=== PATIENT | male | born 1975 | race African-American/Black ===

== ENCOUNTER 2017-10-20 09:49 | Emergency (ER) | payer SELFPAY ==
[~2017-10-20] VITALS: Ht 188 cm; Wt 93.2 kg
[~2017-10-20 09:49] MED LIST: ASPIRIN 32325 MG/TAB PO; LORTAB 5/500 501 TAB PO; NAPROSYN PO; NO HOME MEDICATIONS
[2017-10-20 10:04] VITALS: TEMP 97.5
[2017-10-20 11:05] LABS: COLLECTION METHOD CLEAN CATCH
[2017-10-20 11:07] LABS: BASO % 0.6 % (0.0-2.0); EOS # 0.1 (0.0-0.7); EOS % 1.9 % (0-4.0); GRAN # 3.7 (1.4-6.5); GRAN % 53.3 % (42.2-75.2); HEMATOCRIT 42.8 % (42.0-52.0); LYMPH # 2.3 (1.2-3.4); LYMPH % 33.4 % (20.0-51.0); MEAN CELL VOLUME 76 fl (80.0-100.0); MEAN CORPUSCULAR HEMOGLOBIN 27 pg (27.0-31.0); MEAN CORPUSCULAR HGB CONC 35 g/dl (33.0-37.0); MEAN PLATELET VOLUME 11.7 fl (7.4-10.4); MONO # 0.7 (0.1-0.6); MONO % 9.7 % (1.7-9.3); PLATELET COUNT 197 K/mm3 (130-400); RED BLOOD COUNT 5.66 M/mm3 (4.20-5.60); REDCELL DISTRIBUTION WIDTH-CV 14.6 % (11.5-14.5)
[2017-10-20 11:16] LABS: MUCOUS Present /lpf; PH 6 (5-8); SQUAMOUS EPITHELIAL None Seen /hpf; URINE APPEARANCE Clear; URINE BACTERIA Rare /hpf; URINE BILIRUBIN Negative (NEGATIVE); URINE BLOOD Negative (NEGATIVE); URINE COLOR Yellow; URINE GLUCOSE Negative (NEGATIVE); URINE KETONE Negative (NEGATIVE); URINE LEUKOCYTE ESTERASE Negative (NEGATIVE); URINE NITRATE Negative (NEGATIVE); URINE PROTEIN(semi-quant) 1+ (NEGATIVE); URINE RBC 0-2 /hpf; URINE UROBILINOGEN Negative (NEGATIVE)
[2017-10-20 11:19] LABS: ALANINE AMINOTRANSFERASE 49 U/L (21-72); ALBUMIN 3.8 gm/dL (3.5-5.0); ALKALINE PHOSPHATASE 81 U/L (50-136); ANION GAP 9 mmol/L (7-16); AST,SGOT 37 U/L (15-37); BILIRUBIN,TOTAL 0.8 mg/dL (0.0-1.0); BLOOD UREA NITROGEN 18 mg/dL (9-20); CARBON DIOXIDE 30 mmol/L (22-30); CHLORIDE 100 mmol/L (98-107); CREATININE, serum 0.95 mg/dL (0.66-1.25); GLUCOSE 128 mg/dL (74-106); LIPASE 171 U/L (23-300); POTASSIUM 4.4 mmol/L (3.4-5.0); SODIUM 139 mmol/L (137-145); TOTAL PROTEIN 7.2 gm/dL (6.4-8.2)
[2017-10-20 11:33] LABS: TROPONIN-I < 0.012 ng/mL (0.000-0.034)
[2017-10-20] MEDS ORDERED: FLEXERIL 1010 MG/TAB PO (12:46)
[2017-10-20 13:06] VITALS: BP 129/86; PULSE 76
== END 2017-10-20 13:05 | disposition home or self-care (01) ==
LOC: COL.ER 09:49
PROVIDERS: Emergency Medicine
DX: R07.9 Chest pain, unspecified (principal); M54.5 Low back pain; F17.210 Nicotine dependence, cigarettes, uncomplicated
CPT/HCPCS: J1170; J7030

== ENCOUNTER 2018-01-04 19:32 | Emergency (ER) | payer SELFPAY ==
[~2018-01-04] VITALS: Ht 185.4 cm; Wt 97.7 kg
[~2018-01-04 19:32] MED LIST changes: +FLEXERIL 1010 MG/TAB PO
[2018-01-04 19:34] VITALS: BP 135/77; PULSE 79; TEMP 98.3
[2018-01-04] MEDS ORDERED: NORCO 325 MG-51 TAB PO (20:42)
[2018-01-04] MEDS ORDERED: PEN-VEE K500 MG PO (20:42)
== END 2018-01-04 20:55 | disposition home or self-care (01) ==
LOC: COL.ER 19:32
DX: K05.30 Chronic periodontitis, unspecified (principal); K03.81 Cracked tooth; F17.210 Nicotine dependence, cigarettes, uncomplicated

== ENCOUNTER 2018-09-19 17:38 | Emergency (ER) | payer SELFPAY ==
[~2018-09-19] VITALS: Ht 185.4 cm; Wt 93.2 kg
[~2018-09-19 17:38] MED LIST changes: +NORCO 325 MG-51 TAB PO; +PEN-VEE K500 MG PO
[2018-09-19 17:39] VITALS: TEMP 97
[2018-09-19 18:23] LABS: BASO # 0.1 (0.0-0.2); BASO % 0.9 % (0.0-2.0); EOS # 0.1 (0.0-0.7); EOS % 1.7 % (0-4.0); GRAN # 2.9 (1.4-6.5); GRAN % 45.1 % (42.2-75.2); HEMATOCRIT 43.5 % (42.0-52.0); HEMOGLOBIN 15.1 g/dl (13.5-18.0); LYMPH # 2.4 (1.2-3.4); LYMPH % 37.1 % (20.0-51.0); MEAN CELL VOLUME 75 fl (80.0-100.0); MEAN CORPUSCULAR HEMOGLOBIN 26 pg (27.0-31.0); MEAN CORPUSCULAR HGB CONC 35 g/dl (33.0-37.0); MONO # 0.9 (0.1-0.6); MONO % 13.9 % (1.7-9.3); PLATELET COUNT 243 K/mm3 (130-400); RED BLOOD COUNT 5.82 M/mm3 (4.20-5.60); REDCELL DISTRIBUTION WIDTH-CV 13.3 % (11.5-14.5)
[2018-09-19 18:24] LABS: COLLECTION METHOD CLEAN CATCH
[2018-09-19 18:30] LABS: ALBUMIN 3.9 gm/dL (3.5-5.0); BILIRUBIN,TOTAL 0.3 mg/dL (0.0-1.0); CREATININE, serum 1.1 mg/dL (0.66-1.25); POTASSIUM 4.3 mmol/L (3.4-5.0); TOTAL PROTEIN 7.1 gm/dL (6.4-8.2)
[2018-09-19 18:39] LABS: PH 5 (5-8); SQUAMOUS EPITHELIAL None Seen /hpf; URINE APPEARANCE Clear; URINE BACTERIA None Seen /hpf; URINE BILIRUBIN Negative (NEGATIVE); URINE BLOOD Negative (NEGATIVE); URINE COLOR Yellow; URINE GLUCOSE Negative (NEGATIVE); URINE KETONE Negative (NEGATIVE); URINE LEUKOCYTE ESTERASE Negative (NEGATIVE); URINE NITRATE Negative (NEGATIVE); URINE PROTEIN(semi-quant) Negative (NEGATIVE); URINE RBC 0-2 /hpf; URINE UROBILINOGEN Negative (NEGATIVE); URINE WBC 0-2 /hpf
[2018-09-19] MEDS ORDERED: NORCO 325 MG-51 TAB PO (19:39)
[2018-09-19 20:00] VITALS: BP 143/84; PULSE 77
== END 2018-09-19 20:04 | disposition home or self-care (01) ==
LOC: COL.ER 17:38
PROVIDERS: Emergency Medicine
DX: S32.019A Unspecified fracture of first lumbar vertebra, initial encounter for closed fracture (principal); S32.039A Unspecified fracture of third lumbar vertebra, initial encounter for closed fracture; S32.049A Unspecified fracture of fourth lumbar vertebra, initial encounter for closed fracture; F17.210 Nicotine dependence, cigarettes, uncomplicated; V43.62XA Car passenger injured in collision with other type car in traffic accident, initial encounter
CPT/HCPCS: Q9967

== ENCOUNTER 2020-07-29 15:42 | Emergency (ER) | payer SELFPAY ==
[~2020-07-29] VITALS: Ht 185.4 cm; Wt 81.8 kg
[2020-07-29 16:06] VITALS: BP 119/83; TEMP 98.7
[2020-07-29 18:00] VITALS: PULSE 89
== END 2020-07-29 18:00 | disposition home or self-care (01) ==
LOC: COL.ER 15:42
DX: U07.1 COVID-19 (principal); F17.200 Nicotine dependence, unspecified, uncomplicated

== ENCOUNTER 2020-08-19 12:13 | Emergency (ER) | payer SELFPAY ==
[~2020-08-19] VITALS: Ht 185.4 cm; Wt 81.8 kg
[2020-08-19 12:14] VITALS: TEMP 98
[2020-08-19 13:01] LABS: HEMATOCRIT 43.1 % (42.0-52.0); HEMOGLOBIN 14.8 g/dl (13.5-18.0); MEAN CELL VOLUME 74 fl (80.0-100.0); MEAN CORPUSCULAR HEMOGLOBIN 25 pg (27.0-31.0); MEAN CORPUSCULAR HGB CONC 34 g/dl (33.0-37.0); MEAN PLATELET VOLUME 11.2 fl (7.4-10.4); PLATELET COUNT 280 K/mm3 (130-400); RED BLOOD COUNT 5.83 M/mm3 (4.20-5.60); REDCELL DISTRIBUTION WIDTH-CV 13.3 % (11.5-14.5)
[2020-08-19 13:11] LABS: PROTHROMBIN TIME 10.6 SECONDS (9.7-12.8)
[2020-08-19 13:12] LABS: ALANINE AMINOTRANSFERASE 21 U/L (4-49); ALBUMIN 4.2 gm/dL (3.5-5.0); ALKALINE PHOSPHATASE 105 U/L (50-136); ANION GAP 11 mmol/L (7-16); AST,SGOT 31 U/L (15-37); BILIRUBIN,TOTAL 0.6 mg/dL (0.0-1.0); BLOOD UREA NITROGEN 15 mg/dL (9-20); CALCIUM 9.6 mg/dL (8.4-10.2); CARBON DIOXIDE 25 mmol/L (22-30); CHLORIDE 104 mmol/L (98-107); CREATININE, serum 1.09 (0.66-1.25); GLUCOSE 96 mg/dL (74-106); LIPASE 254 U/L (23-300); POTASSIUM 4.2 mmol/L (3.4-5.0); SODIUM 140 mmol/L (137-145); TOTAL PROTEIN 7.2 gm/dL (6.4-8.2)
[2020-08-19 13:13] LABS: PARTIAL THROMBOPLASTIN TIME 29.1 SECONDS (26.0-37.0)
[2020-08-19 13:26] LABS: TROPONIN-I < 0.012 ng/mL (0.000-0.035)
[2020-08-19 13:27] LABS: BASOPHIL 1 % (0-2); EOSINOPHIL 2 % (0-4); LYMPHOCYTE 33 % (20.0-51.0); NEUTROPHILS 49 % (42.0-75.2); PLATELET ESTIMATE NORMAL (NORMAL)
[2020-08-19 13:28] LABS: MICROCYTOSIS 1+
[2020-08-19 15:01] LABS: TRICYCLIC ANTIDEPRESS URINE NEGATIVE
[2020-08-19 18:35] VITALS: BP 110/84; PULSE 90
== END 2020-08-19 18:35 | disposition short-term general hospital (02) ==
LOC: COL.ER 12:13
PROVIDERS: Emergency Medicine; Hospitalist
DX: U07.1 COVID-19 (principal); S00.212A Abrasion of left eyelid and periocular area, initial encounter; I48.91 Unspecified atrial fibrillation; F17.210 Nicotine dependence, cigarettes, uncomplicated; Y04.8XXA Assault by other bodily force, initial encounter
CPT/HCPCS: J1650; J7030

== ENCOUNTER 2021-05-30 06:21 | Emergency (ER) | payer SELFPAY ==
[~2021-05-30] VITALS: Ht 185.4 cm; Wt 90.9 kg
[2021-05-30 06:29] VITALS: TEMP 96.3
[2021-05-30] MEDS ORDERED: LIDOCAINE HCL100 M1 MM (06:46)
[2021-05-30 07:00] VITALS: PULSE 85
== END 2021-05-30 07:00 | disposition home or self-care (01) ==
LOC: COL.ER 06:21
DX: K12.30 Oral mucositis (ulcerative), unspecified (principal); F17.210 Nicotine dependence, cigarettes, uncomplicated
CPT/HCPCS: J1885

== ENCOUNTER 2021-06-05 10:27 | Inpatient (IN) | payer SELFPAY ==
[~2021-06-05] VITALS: Ht 185.4 cm; Wt 89.9 kg
[~2021-06-05 10:27] MED LIST changes: +LIDOCAINE HCL100 M1 MM
[2021-06-05 11:35] LABS: HEMATOCRIT 40.8 % (42.0-52.0); MEAN CELL VOLUME 77 fl (80.0-100.0); MEAN CORPUSCULAR HEMOGLOBIN 26 pg (27.0-31.0); MEAN CORPUSCULAR HGB CONC 34 g/dl (33.0-37.0); MEAN PLATELET VOLUME 11.1 fl (7.4-10.4); PLATELET COUNT 242 K/mm3 (130-400); RED BLOOD COUNT 5.32 M/mm3 (4.20-5.60); REDCELL DISTRIBUTION WIDTH-CV 13.2 % (11.5-14.5)
[2021-06-05 11:45] LABS: ALBUMIN 3.8 gm/dL (3.5-5.0); BILIRUBIN,TOTAL 2.2 mg/dL (0.2-1.2); CALCIUM 9.3 mg/dL (8.4-10.2); CREATININE, serum 1.55 mg/dL (0.72-1.25); POTASSIUM 4.2 mmol/L (3.5-4.5)
[2021-06-05 12:21] LABS: BAND 1 % (0-10); LYMPHOCYTE 9 % (20.0-51.0); MICROCYTOSIS 1+; NEUTROPHILS 86 % (42.0-75.2); PLATELET ESTIMATE NORMAL (NORMAL)
[2021-06-05 12:22] LABS: STOMATOCYTE 1+
[2021-06-05 13:46] LABS: COLLECTION METHOD CLEAN CATCH
[2021-06-05 13:52] LABS: GLUCOSE,CSF 98 mg/dL (40-70); TOTAL PROTEIN,CSF 51 mg/dL (15-45)
[2021-06-05 14:08] LABS: MUCOUS Present (NOT PRESENT); PH 5 (5-8); SQUAMOUS EPITHELIAL 0-2 /hpf (0-10); URINE APPEARANCE Clear (CLEAR/HAZY); URINE BACTERIA None Seen (NONE SEEN); URINE BILIRUBIN Negative (NEGATIVE); URINE BLOOD Negative (NEGATIVE); URINE COLOR Amber (YELLOW); URINE GLUCOSE 2+ (NEGATIVE); URINE KETONE Negative (NEGATIVE); URINE LEUKOCYTE ESTERASE Negative (NEGATIVE); URINE NITRATE Negative (NEGATIVE); URINE PROTEIN(semi-quant) Negative (NEGATIVE); URINE UROBILINOGEN >=4.0 mg/dL (NEGATIVE)
[2021-06-05 14:46] LABS: CSF APPEARANCE CLEAR; CSF COLOR COLORLESS; CSF MONONUCLEAR 33 % (70-100); CSF POLYMORPHONUCLEAR 67 % (0-6); CSF RBC 1 /mm3 (0-0)
[2021-06-05 15:07] LABS: CSF APPEARANCE CLEAR; CSF COLOR COLORLESS
[2021-06-05 15:08] LABS: CSF MONONUCLEAR 100 % (70-100); CSF POLYMORPHONUCLEAR 0 % (0-6); CSF RBC 171 /mm3 (0-0)
[2021-06-05 16:29] VITALS: BP 103/48; PULSE 106; TEMP 100.9
--- NOTE | 2021-06-05 16:30 | NUR ---
Patient to room 310 by bed from the ED. A&Ox3. VSS. IV CDI. Patient reports being cold, has several blankets. Oral temperature 100.7, called to Dr. Vallecillo. Patient asking to eat, nurse informed the patient that there is no order for food. Nurse oriented the patient to location, room, and call light. Denies pain. no further needs expressed. Call light within reach
--- NOTE | 2021-06-05 18:19 | NUR ---
Patient ate dinner and sitting up in bed watching TV. A&Ox3. VSS. IV CDI, fluids infusing. Denies pain. No further needs expressed. Call light within reach
[2021-06-05 18:22] LABS: TRICYCLIC ANTIDEPRESS URINE NEGATIVE
[2021-06-05 22:14] VITALS: BP 113/60; PULSE 88; TEMP 97.8
--- NOTE | 2021-06-05 22:54 | NUR ---
Patient resting in bed upon enter the room. Patient A/Ox3. Patient reports generalized pain/discomfort to BLE. PRN Tylenol given. IVF running per AUG. Call light in reach. Will continue to monitor.
[2021-06-06] VITALS (7 sets, daily range): BP systolic 108–125; BP diastolic 57–73; PULSE 80–92; TEMP 98.3–99
[2021-06-06 06:47] LABS: HEMOGLOBIN 12.3 g/dl (13.5-18.0); MEAN CELL VOLUME 77 fl (80.0-100.0); MEAN CORPUSCULAR HEMOGLOBIN 26 pg (27.0-31.0); MEAN CORPUSCULAR HGB CONC 34 g/dl (33.0-37.0); MEAN PLATELET VOLUME 12.1 fl (7.4-10.4); PLATELET COUNT 218 K/mm3 (130-400); RED BLOOD COUNT 4.66 M/mm3 (4.20-5.60); REDCELL DISTRIBUTION WIDTH-CV 13.2 % (11.5-14.5)
[2021-06-06 07:05] LABS: CALCIUM 9.2 mg/dL (8.4-10.2); CREATININE, serum 0.98 mg/dL (0.72-1.25); POTASSIUM 3.7 mmol/L (3.5-4.5)
--- NOTE | 2021-06-06 08:05 | NUR ---
Patient laying in bed watching TV. A&Ox4. States that he is hungry, patient placed an order for breakfast. VSS. IV CDI, fluids infusing. No further needs expressed. Call light within reach
[2021-06-06 09:01] LABS: BAND 3 % (0-10); LYMPHOCYTE 19 % (20.0-51.0); NEUTROPHILS 72 % (42.0-75.2)
[2021-06-06 09:02] LABS: MICROCYTOSIS 1+; PLATELET ESTIMATE NORMAL (NORMAL)
--- NOTE | 2021-06-06 13:09 | NUR ---
Plan is Unknown. Patient is homeless from [place]. SW met with patient about care. Patient shares that he is originally from this area however has lived in [place] for a while. Patient shares that he came up to to visit and was staying with a family member when he was asked to leave. Patient reports being homeless and not having any support. Patient reports that he has a mother in [place] Maru Robbins . Patient was asked if he could stay with mother and stated that she is to far away but wants to get back to [place] where he will be good. Patient reports that has a medical card from [place] but does not have his wallet. Patient reports that he left his wallet at a friends house who could bring it to him with his identifications but he does not have a patient access manager for his phone and does not have all the phone numbers. Patient will need a medications voucher and transportation supports. Will have other hospice case manager follow up.
--- NOTE | 2021-06-06 17:56 | NUR ---
Patient has had several loose BM's throughout the shift, GI panel pending. A&Ox4. VSS. No reported fevers. Denies pain, reports discomfort r/t loose stools. IV CDI. Patient independent in the room. No further needs expressed. Call light within reach
--- NOTE | 2021-06-06 22:12 | NUR ---
Patient alert and oriented. Patient denies any pain or SOB. Patient reports having lots of loose BM throughout the day. GI panel result was Negative. Informed STEPHANIE Pruett about GT Panel result and received new order to give Imodium PRN for loose BM. Will give imodium per order. Call light in reach. Will continue to monitor.
[2021-06-07 01:11] VITALS: BP 127/76; PULSE 90; TEMP 98.3
--- NOTE | 2021-06-07 03:30 | NUR ---
Patient has order for Temelemetry monitoring. Called Telemetry and [place], [employer] for any available Tele box. Per Tememetry staff, we don't have any extra Tele box right now. Will have to wait until Tele box to be available. Patient's VS stable. HR WNL. No c/o chest pain at this time. Will continue to monitor.
[2021-06-07 04:16] VITALS: BP 123/62; PULSE 86; TEMP 97.8
[2021-06-07 07:06] VITALS: BP 104/56; PULSE 72; TEMP 98.3
[2021-06-07 07:40] LABS: BASO # 0.1 K/mm3 (0.0-0.2); BASO % 0.4 % (0.0-2.0); EOS # 0.1 K/mm3 (0.0-0.7); EOS % 0.8 % (0-4.0); GRAN # 10.2 K/mm3 (1.4-6.5); GRAN % 74.6 % (42.2-75.2); HEMOGLOBIN 12.2 g/dl (13.5-18.0); LYMPH # 2.2 K/mm3 (1.2-3.4); MEAN CELL VOLUME 76 fl (80.0-100.0); MEAN CORPUSCULAR HEMOGLOBIN 26 pg (27.0-31.0); MEAN CORPUSCULAR HGB CONC 35 g/dl (33.0-37.0); MEAN PLATELET VOLUME 11.4 fl (7.4-10.4); MONO % 7.1 % (1.7-9.3); PLATELET COUNT 237 K/mm3 (130-400); RED BLOOD COUNT 4.66 M/mm3 (4.20-5.60); REDCELL DISTRIBUTION WIDTH-CV 13.1 % (11.5-14.5)
[2021-06-07 07:55] LABS: CREATININE, serum 0.97 mg/dL (0.72-1.25); POTASSIUM 3.9 mmol/L (3.5-4.5)
--- NOTE | 2021-06-07 07:55 | NUR ---
Scheduled medications given. Shift assessment done. Patient states that he has a Headache rated a 6/10. Denies blurred vision, dizziness, or N/V. PRN tylenol given. Denies any further pain, discomfort, SOA, or further needs at this time. Call light in reach. VSS. Patient A&O.
[2021-06-07 07:56] LABS: HEMATOCRIT 35.4 % (42.0-52.0)
[2021-06-07 09:39] LABS: PATHOLOGY DIFF REVIEW OK +
[2021-06-07] MEDS ORDERED: OMNICEF 300MG300 MG PO ×2 (10:18)
[2021-06-07 11:26] VITALS: BP 122/53; PULSE 78; TEMP 98
--- NOTE | 2021-06-07 11:32 | NUR ---
Initial visit attempt; Patient sleeping, Cuff Cutter left card of God's blessings and information regarding the availability of spiritual care at our hospital.
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
--- NOTE | 2021-06-07 15:37 | NUR ---
Patient deemed fit for discharge. IV DC'd, catheter intact, no signs of phlebitis. Discharge education/Instructions given. All questions answered. VSS. Patient A&O. Patient ambulated from the building escorted by [facility] [place] Staff, Friend transporting to [place]. Patient to stay with friend.
== END 2021-06-07 14:00 | disposition home or self-care (01) | DRG 871 ==
LOC: COL.ER 10:27 → MEDICAL 14:18
PROVIDERS: Family Medicine; ADMIT Internal Medicine
DX: A41.9 Sepsis, unspecified organism (principal); J18.9 Pneumonia, unspecified organism; N17.9 Acute kidney failure, unspecified; A87.9 Viral meningitis, unspecified; Z59.00 Homelessness unspecified; R65.20 Severe sepsis without septic shock; G89.29 Other chronic pain; M54.9 Dorsalgia, unspecified; F17.210 Nicotine dependence, cigarettes, uncomplicated
CPT/HCPCS: 99223-AI; 99232-AI; 99239; J0456; J0696; J1644; J7030; J7050; J7120

== ENCOUNTER 2022-08-20 22:46 | Emergency (ER) | payer OTHER ==
[~2022-08-20] VITALS: Ht 182.9 cm; Wt 88.6 kg
[~2022-08-20 22:46] MED LIST changes: +OMNICEF 300MG300 MG PO
[2022-08-20 22:49] VITALS: TEMP 98.1
[2022-08-20 22:58] VITALS: O2SAT 97
[2022-08-20 23:09] LABS: BASO # 0.1 K/mm3 (0.0-0.2); BASO % 0.9 % (0.0-2.0); EOS # 0.1 K/mm3 (0.0-0.7); EOS % 2.1 % (0.0-4.0); GRAN # 2.3 K/mm3 (1.4-6.5); GRAN % 34.8 % (42.2-75.2); HEMATOCRIT 41.4 % (42.0-52.0); HEMOGLOBIN 13.6 g/dl (13.5-18.0); LYMPH # 3.4 K/mm3 (1.2-3.4); LYMPH % 51.4 % (20.0-51.0); MEAN CELL VOLUME 77 fl (80.0-100.0); MEAN CORPUSCULAR HEMOGLOBIN 25 pg (27-31); MEAN CORPUSCULAR HGB CONC 33 g/dl (33.0-37.0); MEAN PLATELET VOLUME 11.8 fl (7.4-10.4); MONO # 0.7 K/mm3 (0.1-0.6); MONO % 10.2 % (1.7-9.3); PLATELET COUNT 193 K/mm3 (130-400); REDCELL DISTRIBUTION WIDTH-CV 13.8 % (11.5-14.5)
[2022-08-20 23:16] LABS: PROTHROMBIN TIME 11.6 SECONDS (9.7-12.8)
[2022-08-20 23:23] LABS: ALANINE AMINOTRANSFERASE 17 U/L (0-55); ALKALINE PHOSPHATASE 93 U/L (40-150); ANION GAP 11 mmol/L (7-16); AST,SGOT 19 U/L (5-34); BILIRUBIN,TOTAL 0.6 mg/dL (0.2-1.2); BLOOD UREA NITROGEN 17 mg/dL (9-21); CALCIUM 9.7 mg/dL (8.4-10.2); CARBON DIOXIDE 26 mmol/L (22-29); CHLORIDE 105 mmol/L (98-107); CREATININE, serum 1.34 mg/dL (0.72-1.25); GLUCOSE 97 mg/dL (70-99); POTASSIUM 4.5 mmol/L (3.5-4.5); SODIUM 142 mmol/L (136-145)
[2022-08-20 23:32] LABS: TROPONIN-I < 0.010 ng/mL (0.00-0.033)
[2022-08-21 01:20] VITALS: BP 129/89; PULSE 57
== END 2022-08-21 01:27 | disposition home or self-care (01) ==
LOC: COL.ER 22:46
PROVIDERS: Family Medicine
DX: R07.89 Other chest pain (principal); Z28.310 Unvaccinated for COVID-19